=== PATIENT | male | born 1945 | race Caucasian/White ===

== ENCOUNTER 2016-03-31 16:13 | Emergency (ER) | payer MEDICARE, OTHER ==
[~2016-03-31 16:13] MED LIST: CHILDREN'S ASPI81 M1 PO; COMBIGAN 0.2%-010 ML OD; LANTUS100 U/ML SC; LISINOPRIL10 MG PO; METFORMIN1000 MG PO; SYNTHROID
[2016-03-31] MEDS ORDERED: COREG12.5 M1 PO (16:55)
[2016-03-31 17:28] VITALS: BP 149/80
== END 2016-03-31 17:50 | disposition home or self-care (01) ==
LOC: ED 16:13
DX: S61.412A Laceration without foreign body of left hand, initial encounter (principal); W26.9XXA Contact with unspecified sharp object(s), initial encounter; Y92.018 Other place in single-family (private) house as the place of occurrence of the external cause
CPT/HCPCS: 15840; 5930; A4550; A4649

== ENCOUNTER → 2016-04-10 | Emergency (ER) | payer MEDICARE, OTHER ==
[~2016-04-10] MED LIST changes: +COREG12.5 M1 PO
[2016-04-10 10:32] VITALS: BP 174/72
== END ==
LOC: ED 10:17
DX: S61.412D Laceration without foreign body of left hand, subsequent encounter (principal); W26.9XXD Contact with unspecified sharp object(s), subsequent encounter

== ENCOUNTER → 2020-10-11 | Outpatient (CLI) | payer MEDICARE, OTHER | LOC: PT 10:05 | DX: M16.11 Unilateral primary osteoarthritis, right hip (principal) ==

== ENCOUNTER 2020-10-30 13:25 | Outpatient (RCR) | payer MEDICARE, OTHER | END 2021-01-28 | disposition home or self-care (01) | LOC: PT | DX: Z96.641 Presence of right artificial hip joint (principal) ==

== ENCOUNTER 2021-02-12 13:46 | Outpatient (RCR) | payer MEDICARE, OTHER | END 2021-03-02 23:59 | disposition home or self-care (01) | LOC: PT 13:46 | DX: M17.11 Unilateral primary osteoarthritis, right knee (principal) ==

== ENCOUNTER 2021-03-05 10:00 | Outpatient (RCR) | payer MEDICARE, OTHER | END 2021-04-02 | disposition home or self-care (01) | LOC: PT | DX: M17.11 Unilateral primary osteoarthritis, right knee (principal); Z96.651 Presence of right artificial knee joint ==

== ENCOUNTER 2021-04-06 09:44 | Outpatient (RCR) | payer MEDICARE, OTHER | END 2021-04-27 17:00 | disposition home or self-care (01) | LOC: PT 09:44 | DX: M17.11 Unilateral primary osteoarthritis, right knee (principal) | CPT/HCPCS: G0283-GP ==

== ENCOUNTER 2021-08-20 12:14 | Emergency (ER) | payer MEDICARE, OTHER ==
[~2021-08-20 12:14] MED LIST changes: +ADULT ASPIRIN R81 MG PO; +ALOGLIPTIN12.5 MG PO; +CEFDINIR300 MG PO; -CHILDREN'S ASPI81 M1 PO; +COREG 6.256.25 MG/TA PO; +DETROL LA 4MG4 MG PO; +FISH OIL1000 MG PO; +FLOMAX0.4 MG PO; +HCTZ 25MG25 MG PO; +LANTUS SOLOS100 U/ML SQ; -LANTUS100 U/ML SC; +SINEMET 10-1001 EACH PO; +SYNTHROID0.2 MG PO; +TOPIRAMATE25 MG PO; +VITAMIN B122500 MC1 PO; +ZESTRIL40 M1 PO; +ZOCOR40 M1 PO
[2021-08-20 12:27] VITALS: BP 141/89
[2021-08-20 12:53] LABS: BASO # 0.05 K/mm3 (0.02-0.10); EOS # 0.38 K/mm3 (0.04-0.40); EOS % 3.8 % (0.0-4.0); HEMATOCRIT 47.7 % (42.0-52.0); HEMOGLOBIN 15.7 g/dL (13.5-18.0); LYMPH# 1.75 K/mm3 (1.50-4.00); MEAN CELL VOLUME 99 fl (78-100); MEAN CORPUSCULAR HEMOGLOBIN 33 pg (27-31); MEAN CORPUSCULAR HGB CONC 33 g/dL (33-37); MEAN PLATELET VOLUME 9.3 fl (7.4-10.4); MONO # 0.85 K/mm3 (0.20-0.80); NEU # 6.51 K/mm3 (1.40-6.50); PLATELET COUNT 417 K/mm3 (130-400); RED BLOOD COUNT 4.81 M/mm3 (4.20-5.60); RED CELL DISTRIBUTION WIDTH 13.1 % (11.5-14.5)
[2021-08-20 13:03] LABS: POTASSIUM 4.9 mmol/L (3.5-5.1)
[2021-08-20 13:06] LABS: TOTAL PROTEIN 7.4 g/dL (6.2-8.1)
[2021-08-20 13:07] LABS: TOTAL BILIRUBIN 0.3 mg/dL (0.2-1.2)
[2021-08-20 13:38] LABS: URINE APPEARANCE CLEAR; URINE BILIRUBIN NEGATIVE (NEGATIVE); URINE BLOOD NEGATIVE (NEGATIVE); URINE COLOR YELLOW; URINE GLUCOSE NEGATIVE (NEGATIVE); URINE KETONE NEGATIVE (NEGATIVE); URINE LEUKOCYTE ESTERASE NEGATIVE (NEGATIVE); URINE NITRATE NEGATIVE (NEGATIVE); URINE PROTEIN(semi-quant) TRACE (NEGATIVE); URINE UROBILINOGEN NORMAL (NORMAL)
== END 2021-08-20 14:33 | disposition home or self-care (01) ==
LOC: ED 12:14
PROVIDERS: Nurse Practitioner
DX: R35.0 Frequency of micturition (principal); Z28.310 Unvaccinated for COVID-19

== ENCOUNTER 2022-02-03 18:06 | Emergency (ER) | payer MEDICARE, OTHER ==
[~2022-02-03] VITALS: Ht 188 cm; Wt 129.5 kg
[2022-02-03] MEDS ORDERED: CEPHALEXIN500 M1 PO (21:33)
[2022-02-03 22:05] VITALS: BP 156/78
== END 2022-02-03 22:05 | disposition home or self-care (01) ==
LOC: ED 18:06
DX: S93.112A Dislocation of interphalangeal joint of left great toe, initial encounter (principal); S92.422B Displaced fracture of distal phalanx of left great toe, initial encounter for open fracture; S80.01XA Contusion of right knee, initial encounter; E11.9 Type 2 diabetes mellitus without complications; Z96.651 Presence of right artificial knee joint; W18.30XA Fall on same level, unspecified, initial encounter; Y93.01 Activity, walking, marching and hiking; Y92.009 Unspecified place in unspecified non-institutional (private) residence as the place of occurrence of the external cause
CPT/HCPCS: 90715; J0690; L4386